=== PATIENT | male | born 1965 | race Asian ===

== ENCOUNTER → 2016-06-08 | Outpatient (CLI) | payer MEDICARE, MEDICAID ==
[~2016-06-08] VITALS: Ht 177.8 cm; Wt 76.0 kg
[~2016-06-08] MED LIST: ALLO100T PO; AMLO5TAB66 PO; CALC667C PO; CALCIUM ACETATE PO; CARV6.2534 PO; CLON.2 PO; FENO48TA15 PO; FOLI1CAP2 PO; GEMF600T3 PO; LANT500 PO; OMEG1CAP79 PO; RENAVITE PO; ROSU10 PO; SEVEC800 PO
[2016-06-08 12:57] VITALS: BP 121/82
== END | disposition home or self-care (01) ==
LOC: SRCNTR 12:48
PROVIDERS: ATTEND Internal Medicine Critical Care Medicine
DX: I12.0 Hypertensive chronic kidney disease with stage 5 chronic kidney disease or end stage renal disease (principal); N18.6 End stage renal disease; J15.9 Unspecified bacterial pneumonia; E78.2 Mixed hyperlipidemia
CPT/HCPCS: G0463

== ENCOUNTER → 2016-10-14 | Outpatient (CLI) | payer MEDICARE, MEDICAID ==
[~2016-10-14] VITALS: Ht 177.8 cm; Wt 75.5 kg
[2016-10-14 11:21] VITALS: BP 113/74
== END | disposition home or self-care (01) ==
LOC: SRCNTR 11:19
PROVIDERS: ATTEND Internal Medicine Critical Care Medicine
DX: I12.0 Hypertensive chronic kidney disease with stage 5 chronic kidney disease or end stage renal disease (principal); E11.22 Type 2 diabetes mellitus with diabetic chronic kidney disease; N18.6 End stage renal disease; E78.2 Mixed hyperlipidemia; J15.9 Unspecified bacterial pneumonia; C7A.092 Malignant carcinoid tumor of the stomach; Z99.2 Dependence on renal dialysis; Z90.49 Acquired absence of other specified parts of digestive tract; Z87.891 Personal history of nicotine dependence
CPT/HCPCS: G0463

== ENCOUNTER → 2018-02-25 | Outpatient (CLI) | payer MEDICARE, MEDICAID ==
[~2018-02-25] VITALS: Ht 177.8 cm; Wt 76.0 kg
[~2018-02-25] MED LIST changes: -GEMF600T3 PO; +GEMF600T89 PO
[2018-02-25 14:02] VITALS: BP 104/60
== END | disposition home or self-care (01) ==
LOC: SRCNTR 13:56
PROVIDERS: ATTEND Internal Medicine Critical Care Medicine
DX: I12.0 Hypertensive chronic kidney disease with stage 5 chronic kidney disease or end stage renal disease (principal); N18.6 End stage renal disease; E78.2 Mixed hyperlipidemia; J15.9 Unspecified bacterial pneumonia; Z99.2 Dependence on renal dialysis; Z90.49 Acquired absence of other specified parts of digestive tract; Z85.020 Personal history of malignant carcinoid tumor of stomach
CPT/HCPCS: G0463

== ENCOUNTER → 2018-05-25 | Outpatient (CLI) | payer MEDICARE, MEDICAID ==
[~2018-05-25] MED LIST changes: -LANT500 PO; +LANT500T7 PO; -ROSU10 PO; +ROSU10TA22 PO
== END | disposition home or self-care (01) ==
LOC: RADPV 07:54
PROVIDERS: ATTEND Internal Medicine Critical Care Medicine
DX: C7A.092 Malignant carcinoid tumor of the stomach (principal); I12.0 Hypertensive chronic kidney disease with stage 5 chronic kidney disease or end stage renal disease; N18.6 End stage renal disease

== ENCOUNTER → 2018-06-01 | Outpatient (CLI) | payer MEDICARE, MEDICAID ==
[~2018-06-01] VITALS: Ht 177.8 cm; Wt 76.0 kg
[2018-06-01 15:02] VITALS: BP 126/71
== END | disposition home or self-care (01) ==
LOC: SRCNTR 14:34
PROVIDERS: ATTEND Internal Medicine Critical Care Medicine
DX: E78.2 Mixed hyperlipidemia (principal); I12.0 Hypertensive chronic kidney disease with stage 5 chronic kidney disease or end stage renal disease; N18.6 End stage renal disease; J15.9 Unspecified bacterial pneumonia
CPT/HCPCS: G0463